=== PATIENT | female | born 1965 | race Caucasian/White ===

== ENCOUNTER 2020-11-20 08:06 | Outpatient (REF) | payer OTHER, SELFPAY ==
--- NOTE | ~2020-11-20 | XR_ITS ---
EXAMINATION: XR KNEE SERIES, BILATERAL CLINICAL INFORMATION: Pain. COMPARISON: X-rays of the right and left knee September 2018 TECHNIQUE: 3 views of the right knee and 3 views of the left knee including AP upright. FINDINGS: RIGHT KNEE: Patellofemoral compartment: There are mild marginal osteophytes indicative of mild arthrosis, unchanged. Medial compartment: Mild joint space narrowing indicative of mild arthrosis. unchanged. Lateral compartment: Mild marginal osteophytes without joint space narrowing indicative of mild arthrosis. LEFT KNEE: Patellofemoral compartment: Marginal osteophytes indicative of mild arthrosis. Medial compartment: Mild marginal osteophytes without joint space narrowing indicative of mild arthrosis. Lateral compartment: Marginal osteophytes without joint space narrowing indicative of mild arthrosis, unchanged. Small joint effusion. XR/XR knee RT 2V IMPRESSION: RIGHT KNEE: Mild osteoarthritis, unchanged. LEFT KNEE: Mild osteoarthritis, unchanged. Trace joint effusion.
--- NOTE | ~2020-11-20 | XR_ITS ---
EXAMINATION: XR KNEE SERIES, BILATERAL CLINICAL INFORMATION: Pain. COMPARISON: X-rays of the right and left knee September 2018 TECHNIQUE: 3 views of the right knee and 3 views of the left knee including AP upright. FINDINGS: RIGHT KNEE: Patellofemoral compartment: There are mild marginal osteophytes indicative of mild arthrosis, unchanged. Medial compartment: Mild joint space narrowing indicative of mild arthrosis. unchanged. Lateral compartment: Mild marginal osteophytes without joint space narrowing indicative of mild arthrosis. LEFT KNEE: Patellofemoral compartment: Marginal osteophytes indicative of mild arthrosis. Medial compartment: Mild marginal osteophytes without joint space narrowing indicative of mild arthrosis. Lateral compartment: Marginal osteophytes without joint space narrowing indicative of mild arthrosis, unchanged. Small joint effusion. XR/XR knee LT 2V IMPRESSION: RIGHT KNEE: Mild osteoarthritis, unchanged. LEFT KNEE: Mild osteoarthritis, unchanged. Trace joint effusion.
--- NOTE | ~2020-11-20 | XR_ITS ---
EXAMINATION: XR KNEE SERIES, BILATERAL CLINICAL INFORMATION: Pain. COMPARISON: X-rays of the right and left knee September 2018 TECHNIQUE: 3 views of the right knee and 3 views of the left knee including AP upright. FINDINGS: RIGHT KNEE: Patellofemoral compartment: There are mild marginal osteophytes indicative of mild arthrosis, unchanged. Medial compartment: Mild joint space narrowing indicative of mild arthrosis. unchanged. Lateral compartment: Mild marginal osteophytes without joint space narrowing indicative of mild arthrosis. LEFT KNEE: Patellofemoral compartment: Marginal osteophytes indicative of mild arthrosis. Medial compartment: Mild marginal osteophytes without joint space narrowing indicative of mild arthrosis. Lateral compartment: Marginal osteophytes without joint space narrowing indicative of mild arthrosis, unchanged. Small joint effusion. XR/XR knee standing BI IMPRESSION: RIGHT KNEE: Mild osteoarthritis, unchanged. LEFT KNEE: Mild osteoarthritis, unchanged. Trace joint effusion.
== END 2020-11-20 08:07 | disposition home or self-care (01) ==
LOC: HO.HOSX 08:06
PROVIDERS: Visit Provider Orthopaedic Surgery
DX: M17.0 Bilateral primary osteoarthritis of knee (principal)
CPT/HCPCS: 20610; 73560; 73565; 99212; J1100